=== PATIENT | female | born 1985 | race Two or more races ===

== ENCOUNTER 2021-01-20 10:14 | Emergency (ER) | payer MEDICAID ==
[~2021-01-20] VITALS: Ht 154.9 cm; Wt 111.1 kg
[2021-01-20 10:52] VITALS: BP 121/73
== END 2021-01-20 11:16 | disposition home or self-care (01) ==
LOC: ER 10:14
DX: B35.3 Tinea pedis (principal)

== ENCOUNTER → 2021-04-28 | Emergency (ER) | payer MEDICAID ==
[~2021-04-28] VITALS: Ht 154.9 cm; Wt 106.6 kg
[2021-04-28 17:17] LABS: Urine Bacteria NONE SEEN /hpf (None Seen); Urine Blood 2+ /uL (Negative); Urine Specific Gravity 1.014 (1.001-1.035); Urine WBC <1 /hpf (0 - 5)
[2021-04-28 19:01] LABS: Basophils # (auto) 0 10 ^3/uL (0-0.2); Basophils % (auto) 0.3 % (0.0-2.0); Eosinophils # (auto) 0.1 10 ^3/uL (0-0.8); Eosinophils % (auto) 1.1 % (0.0-7.0); Hematocrit 41.4 % (36.0-46.0); Hemoglobin 13.8 g/dL (12.2-16.2); Lymphocytes # (auto) 2.9 10 ^3/uL (0.4-5.4); Lymphocytes % (auto) 27.4 % (10.0-50.0); Mean Corpuscular Hemoglobin 28.3 pg (28.0-32.0); Mean Corpuscular Hgb Conc. 33.3 g/dL (32.0-36.0); Mean Corpuscular Volume 85.2 fL (80.0-100.0); Monocytes # (auto) 0.5 10 ^3/uL (0-1.3); Monocytes % (auto) 5.1 % (0.0-12.0); Neutrophils # (auto) 7.1 10 ^3/uL (1.6-8.6); Neutrophils % (auto) 66.1 % (37.0-80.0); Red Blood Cells 4.86 10^6/uL (4.0-5.20); Red Cell Distribution Width 13.3 % (11.8-14.3); White Blood Cell 10.7 10^3/uL (4.4-10.8)
[2021-04-28 19:22] LABS: Albumin 3.6 g/dL (3.4-5.0); BUN/Creatinine Ratio 20.3; Potassium 4.6 mmol/L (3.5-5.1)
[2021-04-28 19:25] LABS: Bilirubin, Total 0.2 mg/dL (0.2-1.0); Total Protein 7.9 g/dL (6.4-8.2)
[2021-04-28 22:24] VITALS: BP 105/58
== END | disposition home or self-care (01) ==
LOC: ER 16:42
DX: N93.9 Abnormal uterine and vaginal bleeding, unspecified (principal)
CPT/HCPCS: 36415; 80053; 81001; 84702; 85025

== ENCOUNTER 2022-05-20 09:21 | Emergency (ER) | payer MEDICAID ==
[~2022-05-20] VITALS: Ht 154.9 cm; Wt 101.0 kg
[2022-05-20 10:33] VITALS: BP 126/59
[2022-05-20] MEDS ORDERED: IBUP800T27 PO (11:42)
[2022-05-20] MEDS ORDERED: IBUPROFEN 800 MG TAB PO ONE (11:45)
== END 2022-05-20 11:49 | disposition home or self-care (01) ==
LOC: ER 09:21
DX: S93.601A Unspecified sprain of right foot, initial encounter (principal); W18.00XA Striking against unspecified object with subsequent fall, initial encounter; Y93.01 Activity, walking, marching and hiking; Y92.89 Other specified places as the place of occurrence of the external cause; Y99.8 Other external cause status
CPT/HCPCS: 73630

== ENCOUNTER 2023-01-20 09:50 | Emergency (ER) | payer MEDICAID ==
[~2023-01-20] VITALS: Ht 154.9 cm; Wt 102.0 kg
[~2023-01-20 09:50] MED LIST: IBUP800T27 PO
[2023-01-20 10:28] LABS: Basophils # (auto) 0 10 ^3/uL (0-0.2); Basophils % (auto) 0.7 % (0.0-2.0); Eosinophils # (auto) 0.1 10 ^3/uL (0-0.8); Eosinophils % (auto) 2.2 % (0.0-7.0); Hematocrit 39.3 % (36.0-46.0); Lymphocytes # (auto) 2.4 10 ^3/uL (0.4-5.4); Lymphocytes % (auto) 40.1 % (10.0-50.0); Mean Corpuscular Hemoglobin 27.3 pg (28.0-32.0); Mean Corpuscular Hgb Conc. 33.1 g/dL (32.0-36.0); Mean Corpuscular Volume 82.6 fL (80.0-100.0); Monocytes # (auto) 0.4 10 ^3/uL (0-1.3); Monocytes % (auto) 5.8 % (0.0-12.0); Neutrophils # (auto) 3.1 10 ^3/uL (1.6-8.6); Neutrophils % (auto) 51.2 % (37.0-80.0); Nucleated Red Blood Cells % 0.3 %; Red Blood Cells 4.75 10^6/uL (4.0-5.20); Red Cell Distribution Width 13.3 % (11.8-14.3)
[2023-01-20 10:31] LABS: Albumin 3.6 g/dL (3.4-5.0); Calcium 8.5 mg/dL (8.5-10.1); Potassium 3.7 mmol/L (3.5-5.1)
[2023-01-20 10:36] LABS: BUN/Creatinine Ratio 11.6 (10.0-20.0); Bilirubin, Total 0.6 mg/dL (0.2-1.0); Total Protein 7.3 g/dL (6.4-8.2)
[2023-01-20 10:45] LABS: Urine Bacteria NONE SEEN /hpf (None Seen); Urine Blood 3+ /uL (Negative); Urine Mucus FEW (None Seen); Urine Specific Gravity 1.021 (1.001-1.035); Urine WBC 12 /hpf (0 - 5)
[2023-01-20 10:47] LABS: Beta HCG, Quantitative < 1 mlU/mL (1-3)
[2023-01-20] MEDS ORDERED: NITR-87 PO (12:12)
[2023-01-20 13:36] VITALS: BP 109/40
== END 2023-01-20 13:39 | disposition home or self-care (01) ==
LOC: ER 09:50
DX: R07.89 Other chest pain (principal); N39.0 Urinary tract infection, site not specified; R10.2 Pelvic and perineal pain; E03.9 Hypothyroidism, unspecified; Z79.1 Long term (current) use of non-steroidal anti-inflammatories (NSAID)
CPT/HCPCS: 36415; 71045; 80053; 81001; 84443; 84484; 84702; 85025; 85379; 93005

== ENCOUNTER 2023-05-23 08:51 | Emergency (ER) | payer MEDICAID ==
[~2023-05-23] VITALS: Ht 154.9 cm; Wt 98.8 kg
[~2023-05-23 08:51] MED LIST changes: +IBUP-1456 PO; -IBUP800T27 PO; +NITR-87 PO
[2023-05-23 09:00] VITALS: BP 100/68; PULSE 67; RESP 18; TEMP 97.8; O2SAT 98
[2023-05-23 09:29] LABS: Urine Bacteria NONE SEEN /hpf (None Seen); Urine Blood 1+ /uL (Negative); Urine Clarity Clear (Clear); Urine Color Yellow (Yellow); Urine Mucus FEW (None Seen); Urine Protein, UAD Negative (Negative); Urine Specific Gravity 1.015 (1.001-1.035); Urine Urobilinogen Normal (Negative); Urine WBC 1 /hpf (0 - 5); Urine pH 5.5 (5.0-8.0)
[2023-05-23] MEDS ORDERED: NITR-87 PO (14:02)
== END 2023-05-23 14:20 | disposition home or self-care (01) ==
LOC: ER 08:51
DX: H11.32 Conjunctival hemorrhage, left eye (principal); R30.0 Dysuria; R51.9 Headache, unspecified
CPT/HCPCS: 81001

== ENCOUNTER 2023-06-05 12:50 | Emergency (ER) | payer MEDICAID ==
[~2023-06-05] VITALS: Ht 154.9 cm; Wt 103.2 kg
[2023-06-05 15:52] VITALS: BP 136/75; PULSE 110; RESP 18; TEMP 99; O2SAT 98
[2023-06-05] MEDS ORDERED: diphenhdrAMINE HCL 50 MG/1 ML VL IM ONE (16:00)
[2023-06-05] MEDS ORDERED: FAMOTIDINE 20 MG TAB PO ONE (16:00)
[2023-06-05] MEDS ORDERED: EPINEPHrine HCL 1 MG/1 ML AMP IM ONE (16:00)
[2023-06-05] MEDS ORDERED: methylPREDNISolone SOD SUCC 40 MG/ML VL IM ONE (16:00)
[2023-06-05] MEDS ORDERED: EPIN0.3I24 IJ (16:43)
[2023-06-05] MEDS ORDERED: PRED20TA2 PO (16:43)
[2023-06-05] MEDS ORDERED: DIPH-753 PO (16:44)
== END 2023-06-05 16:51 | disposition home or self-care (01) ==
LOC: ER 12:50
DX: T78.40XA Allergy, unspecified, initial encounter (principal); N39.0 Urinary tract infection, site not specified; X58.XXXA Exposure to other specified factors, initial encounter
CPT/HCPCS: 96372; 99284; J0171; J1200; J2920